=== PATIENT | male | born 1990 | race African-American/Black ===

== ENCOUNTER 2017-07-18 03:07 | Emergency (ER) | payer SELFPAY ==
[2017-07-18 03:23] VITALS: BP 137/84
--- NOTE | 2017-07-18 03:45 | ED.ADGEN ---
Physician Documentation Physician Documentation Patient arrived to the emergency department by EMS. Upon arrival the patient stated that he did not want to be seen. Due to refusal to be seen in the emergency department, I did not evaluate this patient and no treatments were rendered. ZANDRA MCKEON MD Jul 18, 2017 03:44
== END 2017-07-18 03:40 | disposition left against medical advice (07) ==
LOC: ER 03:07
DX: T65.91XA Toxic effect of unspecified substance, accidental (unintentional), initial encounter (principal); Z53.21 Procedure and treatment not carried out due to patient leaving prior to being seen by health care provider; Y92.9 Unspecified place or not applicable